=== PATIENT | female | born 1960 | race Caucasian/White ===

== ENCOUNTER → 2024-06-01 | Outpatient (CLI) | payer BC ==
[~2024-06-01] MED LIST: NO HOME MEDICATIONS; NORCO 325 MG-51 TAB PO; PREDNISONE20 MG PO; REFRESH OPTIVE0.4 M1 OP; VALTREX1 GM PO
== END ==
LOC: MAMMO 14:14
DX: Z12.31 Encounter for screening mammogram for malignant neoplasm of breast (principal)